=== PATIENT | female | born 1995 | race Caucasian/White ===

== ENCOUNTER → 2021-06-06 08:50 | Outpatient (BNVA) | payer SELFPAY | PROVIDERS: Visit Provider Family Medicine | DX: Z20.828 Contact with and (suspected) exposure to other viral communicable diseases (principal) | CPT/HCPCS: 87635 ==

== ENCOUNTER 2022-11-04 13:07 | Emergency (ER) | payer OTHER, SELFPAY ==
[2022-11-04 13:16] VITALS: BP 162/101; PULSE 89; RESP 16; TEMP 36.9; O2SAT 98
--- NOTE | 2022-11-04 13:38 | W.ED.FALL ---
HPI - Fall General: Chief Complaint: Fall Stated Complaint: fall, head injury, W/C Time Seen by Provider: 11/04/22 13:22 History of Present Illness: Patient comes in with slight dizziness and a headache after a fall earlier today. States she was walking outside when she lost her balance and fell landing on her knees and hands, and lightly hitting her forehead on the ground. States that at first she was fine, then she developed a mild headache and some slight dizziness. Denies vomiting. States that she has no trouble walking straight that her balance is normal, however she is just slightly dizzy. Associated symptoms-after fall: Reports headache(s); Denies abdominal pain, chest pain or neck pain Review of Systems Const: Denies: fever(s) or body aches Eyes: Denies: change in vision or blurry vision ENMT: Denies: throat pain or odynophagia Card: Denies: chest pain or palpitations Resp: Denies: dyspnea or productive cough GI: Denies: abdominal pain, nausea or vomiting : Denies: flank pain or dysuria Musc: Denies: neck pain or back pain Skin/Breast: Denies: rash or pruritus Neuro: Reports: headache(s) and dizziness; Denies: numbness in extremities Psych: Denies: anxiety or change in appetite Endo: Denies: polyuria or excessive sweating PFSH ED PFSH: Social History Smoking and tobacco status: never smoked Physical Exam Const: COMMON NORMALS: no acute distress, patient oriented x3, healthy appearing and alert HENMT: COMMON NORMALS: normocephalic and atraumatic HEAD & SCALP: normocephalic and atraumatic Eye: COMMON NORMALS: Equal, round and reactive pupils present and EOMs intact bilaterally PUPIL: Yes Equal, round and reactive pupils present Neck/C-Spine: COMMON NORMALS: full ROM and supple Resp: COMMON NORMALS: normal respiratory effort, No retractions and No use of accessory muscles Cardio: COMMON NORMALS: regular rate and regular rhythm RATE: regular rate RHYTHM: regular rhythm GI: COMMON NORMALS: Normal to inspection, nondistended, normoactive bowel sounds present, Soft to palpation and non-tender PALPATION: Yes Soft to palpation Back/Pelvis: COMMON NORMALS: thoracic and lumbar spine normal to inspection and no thoracic nor lumbar tenderness Extremity: COMMON NORMALS: normal to inspection and full ROM Neuro: COMMON NORMALS: patient oriented x3 SENSORIUM/ORIENTATION: Yes alert Psych: COMMON NORMALS: mental status grossly normal and cooperative Skin: COMMON NORMALS: no rashes or lesions noted and no wounds GENERAL SKIN EXAM: no rashes or lesions noted Course Vital Signs: Vital signs: Vital Signs Temperature 98.5 F 11/04/22 13:16 Pulse Rate 89 11/04/22 13:16 Respiratory Rate 16 11/04/22 13:16 Blood Pressure 162/101 11/04/22 13:16 Pulse Oximetry 98 11/04/22 13:16 MDM - Fall Medical Decision Making Patient comes in with slight dizziness and a headache after a fall earlier today. States she was walking outside when she lost her balance and fell landing on her knees and hands, and lightly hitting her forehead on the ground. States that at first she was fine, then she developed a mild headache and some slight dizziness. Denies vomiting. States that she has no trouble walking straight that her balance is normal, however she is just slightly dizzy. Physical exam here is unremarkable including a grossly normal neuro exam. I talked her at length about symptoms and treatment of concussion. Will discharge home at this time with precautions to return for worsening or changing symptoms. Discharge Plan Discharge Patient Disposition: Home Clinical Impression: Concussion Condition: Stable Prescriptions: No Action No Known Home Medications Discharge Orders: Discharge ED (Routine); Ordered 11/04/22 Ordered By: [place] Patient Instructions: Concussion/Head Injury - Adult Coding Level of Care Code ED Medicaid Eligibility Specialist for Yue Arguello
[2022-11-04 13:54] VITALS: RESP 14
== END 2022-11-04 14:23 | disposition home or self-care (01) ==
PROVIDERS: Emergency Provider Emergency Medicine
DX: S06.0XAA Concussion with loss of consciousness status unknown, initial encounter (principal); W01.0XXA Fall on same level from slipping, tripping and stumbling without subsequent striking against object, initial encounter
CPT/HCPCS: 99283

== ENCOUNTER 2023-01-03 08:04 | Outpatient (CLI) | payer OTHER, SELFPAY ==
[2023-01-03 08:18] LABS: Basophils # 0.1 10^3/uL (0.0-0.1); Eosinophils # 0.3 10^3/uL (0.0-0.8); Eosinophils % 3.5 %; Hematocrit 44.7 % (37.0-47.0); Hemoglobin 14.4 g/dL (11.5-15.3); Lymphocytes % 36.1 %; Mean Corpuscular HGB Conc 32.2 g/dL (30.0-36.0); Mean Corpuscular Volume 89.9 fl (81-99); Monocytes # 0.5 10^3/uL (0.2-0.9); Neutrophils # 4.47 10^3/uL (1.8-7.7); Nucleated Red Blood Cells % 0 %; Platelet Count 388 10^3/cmm (130-400); Red Blood Count 4.97 10^6/uL (4.1-5.3); Red Cell Distribution Width 12.1 % (12.1-15.1); White Blood Count 8.4 10^3/uL (4.0-10.0)
[2023-01-03 08:47] LABS: Alanine Aminotransferase 38 U/L (0-33); Albumin Level 4.7 g/dL (3.5-5.2); Alkaline Phosphatase 51 U/L (35-105); Anion Gap 15.1 (5-19); Aspartate Amino Transferase 25 U/L (0-32); Blood Urea Nitrogen 8 mg/dL (6-20); Calcium 9.4 mg/dL (8.5-10.5); Carbon Dioxide 26 mmol/L (22-29); Chloride 102 mmol/L (98-107); Chol HDL Ratio 6.11 mg/dL (0.0-4.40); Cholesterol 220 mg/dL (0-200); Glucose 93 mg/dL (65-115); HDL Cholesterol 36 mg/dL (60-100); LDL Cholesterol Calculated 130 mg/dL (50-129); LDL HDL Ratio 3.61 RATIO (0.00-3.22); Osmolality Calculated 286 mOsm/kg (285-295); Potassium 4.1 mmol/L (3.5-5.1); Sodium 139 mmol/L (136-145); Thyroid Stimulating Hormone 2.62 uIU/mL (0.27-4.20); Total Bilirubin 0.5 mg/dL (0.15-1.2); Total Protein 7.7 g/dL (6.6-8.7); Triglycerides 269 mg/dL (0-150)
== END 2023-01-03 08:05 | disposition home or self-care (01) ==
PROVIDERS: PCP Family Medicine; Visit Provider Family Medicine
DX: Z13.6 Encounter for screening for cardiovascular disorders (principal)
CPT/HCPCS: 80053; 80061; 84443; 85025

== ENCOUNTER → 2023-01-31 11:14 | Outpatient (BNVA) | payer OTHER, SELFPAY | PROVIDERS: PCP Family Medicine; Visit Provider Family Medicine | DX: Z00.00 Encounter for general adult medical examination without abnormal findings (principal) | CPT/HCPCS: 88175 ==

== ENCOUNTER 2023-04-04 11:37 | Outpatient (CLI) | payer OTHER, SELFPAY ==
[2023-04-04 12:27] LABS: Anion Gap 14.9 (5-19); Blood Urea Nitrogen 8 mg/dL (6-20); Calcium 9.7 mg/dL (8.5-10.5); Carbon Dioxide 25 mmol/L (22-29); Chloride 103 mmol/L (98-107); Estradiol 172.7 pg/mL; Follicle Stimulating Hormone 1.4 mIU/mL; Glucose 83 mg/dL (65-115); Luteinizing Hormone 4.6 mIU/mL (0.5-41.7); Osmolality Calculated 283 mOsm/kg (285-295); Potassium 4.9 mmol/L (3.5-5.1); Prolactin 17.46 ng/mL (4.8-23.3); Sodium 138 mmol/L (136-145)
[2023-04-04 12:49] LABS: Testosterone Total 29.9 ng/dL (8.4-48.1)
== END 2023-04-04 11:38 | disposition home or self-care (01) ==
PROVIDERS: PCP Family Medicine; Visit Provider Family Medicine
DX: E28.2 Polycystic ovarian syndrome (principal)
CPT/HCPCS: 36415; 80048; 82670; 83001; 83002; 84146; 84403

== ENCOUNTER 2023-05-09 12:06 | Outpatient (CLI) | payer OTHER, SELFPAY ==
[2023-05-09 12:57] LABS: Thyroid Stimulating Hormone 2.51 uIU/mL (0.27-4.20)
[2023-05-09 13:02] LABS: Estmated Average Glucose 103; Hemoglobin A1C 5.2 % (4.0-6.0)
[2023-05-13 04:44] LABS: Insulin ( Reference Lab Test) 42.4 uIU/mL
== END 2023-05-09 12:07 | disposition home or self-care (01) ==
LOC: LAB 12:08
PROVIDERS: PCP Family Medicine; Visit Provider Obstetrics & Gynecology
DX: N91.0 Primary amenorrhea (principal)
CPT/HCPCS: 36415; 83036; 83525; 84443

== ENCOUNTER → 2023-06-03 15:24 | Outpatient (BNVA) | payer OTHER, SELFPAY | PROVIDERS: PCP Family Medicine; Visit Provider Obstetrics & Gynecology | DX: N83.8 Other noninflammatory disorders of ovary, fallopian tube and broad ligament (principal) | CPT/HCPCS: 76830 ==

== ENCOUNTER → 2023-06-06 09:10 | Outpatient (BNVA) | payer OTHER, SELFPAY | PROVIDERS: PCP Family Medicine; Visit Provider Obstetrics & Gynecology | DX: N92.0 Excessive and frequent menstruation with regular cycle (principal); R53.83 Other fatigue | CPT/HCPCS: 82607; 85025 ==

== ENCOUNTER → 2023-07-01 13:40 | Outpatient (BNVA) | payer OTHER, SELFPAY | PROVIDERS: PCP Family Medicine; Visit Provider Family Medicine | DX: L68.0 Hirsutism (principal); D50.9 Iron deficiency anemia, unspecified; R53.83 Other fatigue; W57.XXXA Bitten or stung by nonvenomous insect and other nonvenomous arthropods, initial encounter | CPT/HCPCS: 80048; 82728; 83550; 84443; 85025; 86618; 86666; 86757 ==

== ENCOUNTER → 2023-07-11 11:28 | Outpatient (BNVA) | payer OTHER, SELFPAY | PROVIDERS: PCP Family Medicine; Visit Provider Family Medicine | DX: R53.83 Other fatigue (principal) | CPT/HCPCS: 86664; 86665 ==

== ENCOUNTER → 2024-06-28 11:26 | Outpatient (BNVA) | payer OTHER, SELFPAY | PROVIDERS: PCP Family Medicine; Visit Provider Nurse Practitioner | DX: U07.1 COVID-19 (principal) | CPT/HCPCS: 87426 ==

== ENCOUNTER 2024-07-06 13:05 | Outpatient (CLI) | payer OTHER, SELFPAY | END 2024-07-06 13:06 | disposition home or self-care (01) | LOC: SLEEP 13:09 | PROVIDERS: PCP Family Medicine; Visit Provider Family Medicine | DX: G47.33 Obstructive sleep apnea (adult) (pediatric) (principal) | CPT/HCPCS: G0399 ==